=== PATIENT | male | born 1985 | race Caucasian/White ===

== ENCOUNTER → 2020-07-28 15:10 | Outpatient (BNVA) | payer OTHER, SELFPAY | PROVIDERS: PCP Internal Medicine; Visit Provider Surgery | DX: K61.0 Anal abscess (principal) | CPT/HCPCS: 99213 ==

== ENCOUNTER → 2020-08-09 08:56 | Outpatient (BNVA) | payer OTHER, SELFPAY | PROVIDERS: PCP Internal Medicine; Visit Provider Surgery | DX: K61.0 Anal abscess (principal) | CPT/HCPCS: 99212 ==

== ENCOUNTER 2020-08-13 11:38 | Day surgery (SDC) | payer OTHER, SELFPAY ==
--- NOTE | 2020-08-12 11:00 | P.CONAN_ITS ---
Documented by User: Cesilia Vo 08/12/20 11:02 HPI - Anesthesia Eval Consult details Narrative: 34yo M for Exam Under Anesthesia, Possible Fisutlotomy, Possible Seton ON LICENSE OF [facility] Past Medical History Medical History Irritable bowel syndrome Perianal abscess Family History Family History Mother History of breast cancer Father No problems noted. Surgical History Surgical History Hx of colonoscopy Social History Social History Alcohol intake: never Smoking Status: Current every day smoker Tobacco Type: Smokeless Tobacco Second Hand Smoke Exposure: No Use of substances other than those prescribed or required for medical reasons: Yes Substance Use Type: Marijuana Substance Use Frequency: Daily Advance Directives: No Advance Directives Information Provided: No (unknown) Advance Directives on File: No Meds Allergies Allergy/AdvReac Type Severity Reaction Status Date / Time penicillin G Allergy Unknown hives Verified 06/02/20 00:00 edilson Allergy Unknown rash Uncoded 06/02/20 00:00 Home Medications Medication Instructions Recorded Confirmed Type diphenoxylate-atropine 2.5 PO 07/28/20 History mg-0.025 mg tablet hyoscyamine sulfate 0.125 mg 0.125 mg SUBLINGUAL 07/28/20 History sublingual tablet omeprazole 20 mg capsule,delayed 20 mg PO DAILY 07/28/20 History release Exam Exam Date and Time: August 12, 2020 1100 Pertinent Lab Results Pertinent Lab Results: Laboratory Tests 03/15/20 11:10 BUN 9 Creatinine 0.83 Assessment and Plan Assessment Anesthesia Assessment: Chart Reviewed Documented by User: Bridget Guy 08/13/20 11:52 ON LICENSE OF [facility] Past Medical History Medical History Irritable bowel syndrome Perianal abscess Family History Family History Mother History of breast cancer Father No problems noted. Surgical History Surgical History Hx of colonoscopy Social History Social History Alcohol intake: never Smoking Status: Current every day smoker Tobacco Type: Smokeless Tobacco Second Hand Smoke Exposure: No Use of substances other than those prescribed or required for medical reasons: Yes Substance Use Type: Marijuana Substance Use Frequency: Daily Advance Directives: No Advance Directives Information Provided: No (unknown) Advance Directives on File: No Meds Allergies Allergy/AdvReac Type Severity Reaction Status Date / Time penicillin G Allergy Unknown hives Verified 06/02/20 00:00 edilson Allergy Unknown rash Uncoded 06/02/20 00:00 Home Medications Medication Instructions Recorded Confirmed Type diphenoxylate-atropine 2.5 PO 07/28/20 History mg-0.025 mg tablet hyoscyamine sulfate 0.125 mg 0.125 mg SUBLINGUAL 07/28/20 History sublingual tablet omeprazole 20 mg capsule,delayed 20 mg PO DAILY 07/28/20 History release Exam Airway Mallampati Class: II TM Dist: >3cm Neck ROM: Full Assessment and Plan Assessment Anesthesia Assessment: Anesthesia Plan Discussed and Chart Reviewed Final Anesthetic Review NPO: Yes ASA Class: II Final Preanesthetic Review: No Changes in Pt Med Stat, Meds/Allgs Chart Reviewed, Consent Obtained/Reviewed and Anes Risks/Benef Reviewed Patient Risk: Low Procedure Risk: Low Anesthetic Plan Anesthetic Plan: GA Disposition: Standard PACU
[2020-08-13 11:48] VITALS: BMI 22.1
[2020-08-13 11:51] VITALS: BP 123/87; PULSE 104; RESP 16; TEMP 37.3; O2SAT 97
--- NOTE | 2020-08-13 11:51 | MHC.SHP ---
Pre-Procedural Eval Section A The patient is an INPATIENT: No The History & Physical has been completed within 30 days and I have reviewed it.: Yes Section B Chief Complaint: Perianal abscess Allergies: Allergies Allergy/AdvReac Type Severity Reaction Status Date / Time penicillin G Allergy Unknown hives Verified 06/02/20 00:00 edilson Allergy Unknown rash Uncoded 06/02/20 00:00 Plan Patient has been examined and remains a candidate for the planned procedure
[2020-08-13] MEDS: Lactated Ringers 1,000 ML 100 ML IVCONT (12:00)
[2020-08-13 12:30] VITALS: BP 127/82; PULSE 85; RESP 16; TEMP 36.9; O2SAT 97
--- NOTE | 2020-08-13 12:30 | PM.OP ---
Brief Operative Note Date of procedure: 08/13/20 Pre-op diagnosis: anal fistula Post-op diagnosis: same Procedure: EUA, seton placement Surgeon: Tin Hui MD Anesthesia: GLMA Estimated blood loss (mL): 10 Pathology: none sent Condition: stable Disposition: PACU
[2020-08-13 12:35] VITALS: BP 121/75; PULSE 80; RESP 16; O2SAT 97
[2020-08-13 12:40] VITALS: BP 109/69; PULSE 82; RESP 16; O2SAT 97
[2020-08-13 12:45] VITALS: BP 103/64; PULSE 63; RESP 16; O2SAT 98
[2020-08-13 13:00] VITALS: BP 100/60; PULSE 67; RESP 13; TEMP 36.8; O2SAT 98
--- NOTE | 2020-08-13 13:25 | OP_ITS ---
SURGEON: Tin Hui MD INDICATIONS: The patient is a 34-year-old male with note of a persistent air drainage on the right side of his anus. He appeared to have a sinus about 2.5 cm from the anal verge. In view of persistent drainage, he agreed to proceed with exam under anesthesia, possible fistulotomy amd placement of seton. He understood the technique of procedure and he was aware of the risks, benefits, and alternatives. PREOPERATIVE DIAGNOSIS: Anal fistula. POSTOPERATIVE DIAGNOSIS: Anal fistula. PROCEDURE PERFORMED: Exam under anesthesia, placement of seton. ESTIMATED BLOOD LOSS: COMPLICATIONS: ANESTHESIA: ASSISTANTS: SPECIMENS: DESCRIPTION OF PROCEDURE: He was brought to the operating room, placed in prone hansa-knife position under general anesthesia via laryngeal mask airway. The buttocks were retracted with wide tape laterally. The perianal area was prepped and draped in usual sterile fashion. A surgical time-out was done. Examination of the anal orifice revealed a sinus opening representing an external fistula as described the above on the right perianal area. I inserted Bud-Diggs retractor. I examined the anal canal circumferentially. He had internal hemorrhoidal columns. I proceeded to then gently introduced the probe to the external orifice and I followed the tract easily without any resistance. The internal fistula opening was seen at the anal verge radially. I passed a yellow vessel loop as a seton through this tract. This was looped around the tract and was tied together with silk 2-0 tie. I trimmed the seton. I examined the rest of the anal canal and there were no other lesions. There was note of good hemostasis. I then infiltrated the perianal area with Marcaine 0.5% for postop analgesia. I divided part of the skin at the external fistula to shorten the tract itself using electrocautery. After infiltration with Marcaine 0.5%, the procedure was completed. The patient tolerated procedure well. There were no complications noted. Initial and final counts of sponges and instruments were correct. Estimated blood loss about 10 mL. The patient was extubated without difficulty and transferred to recovery room with stable vital signs. MD TREY Hilliard/ANAI / [id number] MTDD
--- NOTE | 2020-08-13 13:54 | HO.POSTANES ---
Post Anesthesia Evaluation Post Anesthesia Evaluation Vital Signs: Vital Signs Temp Pulse Resp BP Pulse Ox 08/13/20 13:00 98.2 F 67 13 100/60 98 08/13/20 12:45 63 16 103/64 98 08/13/20 12:40 82 16 109/69 97 08/13/20 12:35 80 16 121/75 97 08/13/20 12:30 98.4 F 85 16 127/82 97 08/13/20 11:51 99.1 F 104 H 16 123/87 97 Anesthesia: General LMA Mental Status: Awake Pain Control: Satisfactory Nausea/Vomiting: None Hydration: Adequate Anesthesia-Related Issues: No Anes. Related Issues
== END 2020-08-13 14:15 | disposition home or self-care (01) ==
PROVIDERS: PCP Internal Medicine; Visit Provider Surgery
PROC: (CPT 46020; principal; 2020-08-13 11:20)
DX: K60.5 Anorectal fistula (principal); K64.8 Other hemorrhoids; K58.9 Irritable bowel syndrome, unspecified; F17.200 Nicotine dependence, unspecified, uncomplicated; F12.90 Cannabis use, unspecified, uncomplicated; Z88.0 Allergy status to penicillin; Z79.899 Other long term (current) drug therapy
CPT/HCPCS: 46020; J1100; J2250; J2405; J3010

== ENCOUNTER → 2020-08-25 09:36 | Outpatient (BNVA) | payer OTHER, SELFPAY | PROVIDERS: PCP Internal Medicine; Visit Provider Surgery | DX: Z48.815 Encounter for surgical aftercare following surgery on the digestive system (principal); K58.9 Irritable bowel syndrome, unspecified | CPT/HCPCS: 99212 ==

== ENCOUNTER → 2020-10-14 14:21 | Outpatient (BNVA) | payer OTHER, SELFPAY | PROVIDERS: PCP Internal Medicine; Visit Provider Surgery | DX: K60.3 Anal fistula (principal) | CPT/HCPCS: 99212 ==

== ENCOUNTER 2020-11-15 09:37 | Day surgery (SDC) | payer OTHER, SELFPAY ==
[2020-11-09 13:38] VITALS: BMI 22.8
--- NOTE | 2020-11-11 13:29 | P.CONAN_ITS ---
Documented by User: Cesilia Vo 11/11/20 13:30 HPI - Anesthesia Eval Consult details Narrative: 35yo M for Colonoscopy [facility] Past Medical History Medical History Acid reflux Anal fistula Irritable bowel syndrome Perianal abscess Family History Family History Mother History of breast cancer Father No problems noted. Surgical History Surgical History History of esophagogastroduodenoscopy (EGD) History of rectal surgery Hx of colonoscopy Social History Social History Alcohol intake: never Smoking Status: Current every day smoker Tobacco Type: Smokeless Tobacco Smoked in Last 30 Days: Yes Second Hand Smoke Exposure: No Use of substances other than those prescribed or required for medical reasons: Yes Substance Use Type: Marijuana Advance Directives Information Provided: No Recently lost weight without trying: No Meds Allergies Allergy/AdvReac Type Severity Reaction Status Date / Time penicillin G Allergy Unknown hives Verified 06/02/20 00:00 edilson Allergy Unknown rash Uncoded 06/02/20 00:00 Home Medications Medication Instructions Recorded Confirmed Type hyoscyamine sulfate 0.125 mg 0.125 mg SUBLINGUAL TID 07/28/20 11/09/20 History sublingual tablet prednisone 10 mg tablet 30 mg PO DAILY 10/14/20 History omeprazole 20 mg PO QAM 11/09/20 11/09/20 History Exam Exam Date and Time: November 11, 2020 1329 Height,Weight and Vital Signs: Height 5 ft 9 in Weight 70.307 kg Assessment and Plan Assessment Anesthesia Assessment: Chart Reviewed Documented by User: Bharat Dinh 11/15/20 11:52 [facility] Past Medical History Medical History Acid reflux Anal fistula Irritable bowel syndrome Perianal abscess Family History Family History Mother History of breast cancer Father No problems noted. Surgical History Surgical History History of esophagogastroduodenoscopy (EGD) History of rectal surgery Hx of colonoscopy Social History Social History Alcohol intake: never Smoking Status: Current every day smoker Tobacco Type: Smokeless Tobacco Smoked in Last 30 Days: Yes Second Hand Smoke Exposure: No Use of substances other than those prescribed or required for medical reasons: Yes Substance Use Type: Marijuana Advance Directives Information Provided: No Recently lost weight without trying: No Meds Allergies Allergy/AdvReac Type Severity Reaction Status Date / Time penicillin G Allergy Unknown hives Verified 06/02/20 00:00 edilson Allergy Unknown rash Uncoded 06/02/20 00:00 Home Medications Medication Instructions Recorded Confirmed Type hyoscyamine sulfate 0.125 mg 0.125 mg SUBLINGUAL TID 07/28/20 11/09/20 History sublingual tablet prednisone 10 mg tablet 30 mg PO DAILY 10/14/20 History omeprazole 20 mg PO QAM 11/09/20 11/09/20 History Exam Airway Mallampati Class: II TM Dist: >3cm Neck ROM: Full Loose/Missing/Broken Teeth: No Heart: [id number] Lungs: cta b/l Assessment and Plan Assessment Anesthesia Assessment: Anesthesia Plan Discussed, PAT Visit and Chart Reviewed Final Anesthetic Review NPO: Yes ASA Class: II Final Preanesthetic Review: No Changes in Pt Med Stat, Meds/Allgs Chart Reviewed, Consent Obtained/Reviewed and Anes Risks/Benef Reviewed Patient Risk: Low Procedure Risk: Low Assessment/Block/Sedation in SS: Assess/Block/Sedation-SS Anesthetic Plan Anesthetic Plan: MAC: and Agree w/ Assess. and Plan Disposition: Standard PACU
[2020-11-15 10:05] VITALS: BP 127/86; PULSE 85; RESP 16; TEMP 37.2; O2SAT 99
[2020-11-15] MEDS: Lactated Ringers 1,000 ML 100 ML IVCONT (10:09)
[2020-11-15 11:59] VITALS: BP 93/48; PULSE 72; RESP 20; TEMP 36.4; O2SAT 98
--- NOTE | 2020-11-15 12:03 | PM.OP ---
Brief Operative Note Date of Service: 11/15/20 Pre-op diagnosis: Diarrhea Post-op diagnosis: other (R/O Microscopic colitis) Procedure: Colonoscopy to cecum and TI with biopsies Surgeon: Shad Robert Anesthesia: MAC Estimated blood loss (mL): 3.0 Pathology: other (A. Terminal ileum B. Ascending colon C. Descending colon) Condition: stable Disposition: PACU
[2020-11-15 12:14] VITALS: BP 110/77; PULSE 69; RESP 17; TEMP 36.4; O2SAT 98
--- NOTE | 2020-11-15 12:34 | HO.POSTANES ---
Post Anesthesia Evaluation Post Anesthesia Evaluation Vital Signs: Vital Signs Temp Pulse Resp BP Pulse Ox 11/15/20 12:14 97.6 F 69 17 110/77 98 11/15/20 11:59 97.6 F 72 20 93/48 L 98 11/15/20 10:05 99.0 F 85 16 127/86 99 Anesthesia: Monitored Mental Status: Awake Pain Control: Satisfactory Nausea/Vomiting: None Hydration: Adequate Anesthesia-Related Issues: No Anes. Related Issues
--- NOTE | 2020-11-22 00:22 | OP_ITS ---
SURGEON: Shad Robert MD INDICATIONS: The patient presents for evaluation of chronic diarrhea. Full consent has been obtained from him for this, including risks of bleeding and perforation. PREOPERATIVE DIAGNOSIS: Diarrhea. POSTOPERATIVE DIAGNOSIS: Diarrhea, rule out microscopic colitis, hemorrhoids. PROCEDURE PERFORMED: Colonoscopy to cecum and terminal ileum with biopsies. ESTIMATED BLOOD LOSS: COMPLICATIONS: ANESTHESIA: Medication used, monitored anesthesia care. ASSISTANTS: SPECIMENS: DESCRIPTION OF PROCEDURE: The patient was placed in the left lateral decubitus position. The digital rectal exam revealed previously placed seton in place. The exam was otherwise unremarkable and there was no other sign of perianal disease. The Olympus video pediatric colonoscope was entered into the rectum, advanced easily to the cecum. Once in the cecum, I did identify normal-appearing cecal pouch with appendiceal orifice and a normal-appearing ileocecal valve. The terminal ileum was cannulated and appeared normal. Biopsies were obtained. The scope was withdrawn back in the colon. The cecum and ileocecal valve appeared normal. Scope was then slowly withdrawn assessing all mucosal surfaces carefully. Preparation was excellent. I did not visualize any sign of polyps, colitis, nor angiodysplasia. I did obtain random biopsies in the ascending and descending colon. In the rectum, scope was retroflexed visualizing internal hemorrhoids, but no other pathology. The rectal mucosa appeared normal. The scope was straightened and withdrawn from the patient. He tolerated the procedure well and was returned to recovery area in stable condition. IMPRESSION: 1. Internal hemorrhoids. 2. Rule out colitis. PLAN: The results of the biopsy will be checked. He was advised not to use any aspirin or NSAIDs for at least 1 week. He was advised to use hyoscyamine for abdominal cramps and discomfort. He is also advised to continue Lomotil as needed for any loose stools, along with Imodium as needed. He was advised to stop his prednisone but speak with his primary care physician regarding how best to discontinue that. He will be seen in a month or so at his next followup visit. MD LINDA Feliz/ANAI / [id number]
== END 2020-11-15 12:31 | disposition home or self-care (01) ==
PROVIDERS: PCP Internal Medicine; Visit Provider Internal Medicine
PROC: 0DJD8ZZ Inspection of Lower Intestinal Tract, Via Natural or Artificial Opening Endoscopic (ICD-10-PCS; CPT 45378; principal; 2020-11-15 11:00)
DX: K52.9 Noninfective gastroenteritis and colitis, unspecified (principal); K64.8 Other hemorrhoids; Z88.0 Allergy status to penicillin
CPT/HCPCS: 45380; 88305

== ENCOUNTER → 2020-11-29 10:32 | Outpatient (BNVA) | payer OTHER, SELFPAY | PROVIDERS: PCP Internal Medicine; Visit Provider Surgery | DX: K60.3 Anal fistula (principal) | CPT/HCPCS: 99212 ==

== ENCOUNTER → 2020-12-22 13:27 | Outpatient (BNVA) | payer OTHER, SELFPAY | PROVIDERS: PCP Internal Medicine; Visit Provider Surgery | DX: K60.3 Anal fistula (principal) | CPT/HCPCS: 99212 ==

== ENCOUNTER → 2021-02-09 14:32 | Outpatient (BNVA) | payer OTHER, SELFPAY | PROVIDERS: PCP Internal Medicine; Visit Provider Surgery | DX: K60.3 Anal fistula (principal) | CPT/HCPCS: 99212 ==

== ENCOUNTER → 2021-05-11 15:26 | Outpatient (BNVA) | payer OTHER, SELFPAY | PROVIDERS: PCP Internal Medicine; Referring Provider Internal Medicine; Visit Provider Surgery | DX: Z48.815 Encounter for surgical aftercare following surgery on the digestive system (principal); Z87.19 Personal history of other diseases of the digestive system | CPT/HCPCS: 99212 ==